=== PATIENT | male | born 1965 | race Caucasian/White ===

== ENCOUNTER 2017-03-15 11:50 | Emergency (ER) | payer BC ==
[~2017-03-15] VITALS: Ht 187.9 cm; Wt 86.2 kg
[~2017-03-15 11:50] MED LIST: CYCLOBENZAPRINE10 MG PO; LOMOTIL 0.025 M1 TAB PO; MOTRIN800 MG PO; NAPROSYN500 MG PO; PENICILLIN-VK500 M1 PO; VICODIN 5-3001 EACH PO
[2017-03-15] MEDS ORDERED: PREDNISONE10 MG PO (12:18)
[2017-03-15] MEDS ORDERED: CLARITIN10 MG PO (12:18)
[2017-03-15] MEDS ORDERED: FLONASE ALLERG9.9 ML NAS (12:18)
[2017-03-15] MEDS ORDERED: CHERATUSSIN AC118 M1 PO (12:18)
== END 2017-03-15 13:51 | disposition home or self-care (01) ==
LOC: ED 11:50
DX: J01.90 Acute sinusitis, unspecified (principal); R03.0 Elevated blood-pressure reading, without diagnosis of hypertension; F17.200 Nicotine dependence, unspecified, uncomplicated

== ENCOUNTER 2019-07-29 10:47 | Emergency (ER) | payer SELFPAY ==
[~2019-07-29] VITALS: Ht 187.9 cm; Wt 90.7 kg
[~2019-07-29 10:47] MED LIST changes: +CHERATUSSIN AC118 M1 PO; +CLARITIN10 MG PO; +FLONASE ALLERG9.9 ML NAS; +PREDNISONE10 MG PO
[2019-07-29] MEDS ORDERED: AUGMENTIN 875875 MG PO (12:03)
[2019-07-29] MEDS ORDERED: IBUPROFEN600 MG PO (12:03)
[2019-07-29] MEDS ORDERED: NORCO 5-325 TA1 EACH PO (12:03)
== END 2019-07-29 13:20 | disposition home or self-care (01) ==
LOC: ED 10:47
DX: L05.91 Pilonidal cyst without abscess (principal); Z79.899 Other long term (current) drug therapy; Z87.891 Personal history of nicotine dependence

== ENCOUNTER 2019-12-02 11:16 | Emergency (ER) | payer MEDICAID ==
[~2019-12-02] VITALS: Ht 187.9 cm; Wt 90.7 kg
[~2019-12-02 11:16] MED LIST changes: +AUGMENTIN 875875 MG PO; +IBUPROFEN600 MG PO; +NORCO 5-325 TA1 EACH PO
== END 2019-12-02 14:50 | disposition home or self-care (01) ==
LOC: ED 11:16
DX: N63.20 Unspecified lump in the left breast, unspecified quadrant (principal); F17.200 Nicotine dependence, unspecified, uncomplicated

== ENCOUNTER 2022-05-30 17:12 | Emergency (ER) | payer SELFPAY ==
[~2022-05-30] VITALS: Wt 88.5 kg
[2022-05-30 18:23] LABS: BASO % 0.4 % (0.0-1.0); EOS # 0.2 10*3/uL (0.0-0.4); EOS % 2.8 % (1.0-4.0); HEMATOCRIT 42.5 % (42.0-52.0); LYMPH # 1.8 10*3/uL (1.3-4.4); LYMPH % 26.8 % (27.0-41.0); MEAN CELL VOLUME 92.6 fl (80.0-94.0); MEAN CORPUSCULAR HGB 31.4 pg (27.0-31.0); MEAN CORPUSCULAR HGB CONC 33.9 g/dl (33.0-37.0); MEAN PLATELET VOLUME 9.3 fl (9.6-12.3); MONO # 0.4 10*3/uL (0.1-1.0); MONO % 5.4 % (3.0-9.0); NEUT # 4.3 10*3/uL (2.3-7.9); NEUT % 64.5 % (47.0-73.0); PLATELET COUNT AUTOMATED 216 10*3/uL (130-400); RED BLOOD COUNT 4.59 10*6/uL (4.50-5.90); RED CELL DISTRI WIDTH 13.6 % (0-14.5); WHITE BLOOD COUNT 6.7 10*3/uL (4.8-10.8)
[2022-05-30 18:39] LABS: ALKALINE PHOSPHATASE 56 U/L (46-116); BUN 18 mg/dl (9-23); CHLORIDE 107 mmol/L (98-107); POTASSIUM 4.5 mmol/L (3.4-5.1); SGPT/ALT 22 U/L (10-49); TOTAL PROTEIN 6.8 gm/dL (6.0-8.0)
[2022-05-30] MEDS ORDERED: HYDROCODONE-AC1 EAC1 PO ×2 (20:49→20:53)
== END 2022-05-30 21:04 | disposition home or self-care (01) ==
LOC: ED 17:12
PROVIDERS: Nurse Practitioner Family
DX: S82.892A Other fracture of left lower leg, initial encounter for closed fracture (principal); F17.200 Nicotine dependence, unspecified, uncomplicated; X58.XXXA Exposure to other specified factors, initial encounter; Y93.89 Activity, other specified; Y92.89 Other specified places as the place of occurrence of the external cause; Y99.8 Other external cause status

== ENCOUNTER 2024-06-15 14:11 | Emergency (ER) | payer SELFPAY ==
[~2024-06-15] VITALS: Ht 187.9 cm; Wt 86.2 kg
[~2024-06-15 14:11] MED LIST changes: +HYDROCODONE-AC1 EAC1 PO
[2024-06-15] MEDS ORDERED: LIDOCAINE HCL/EPINEPHRINE 50 ML VIAL ONE (15:06)
[2024-06-15] MEDS ORDERED: VIBRAMYCIN100 MG PO (15:25)
[2024-06-15] MEDS ORDERED: ceFAZolin sodium 1 GM VIAL IM ONE (15:30)
[2024-06-15] MEDS ORDERED: Motrin,Rufen800 MG PO (16:08)
== END 2024-06-15 16:00 | disposition home or self-care (01) ==
LOC: ED 14:11
DX: L02.11 Cutaneous abscess of neck (principal); L03.90 Cellulitis, unspecified; Z79.899 Other long term (current) drug therapy

== ENCOUNTER 2024-07-29 18:50 | Emergency (ER) | payer SELFPAY ==
[~2024-07-29] VITALS: Wt 87.5 kg
[~2024-07-29 18:50] MED LIST changes: +Motrin,Rufen800 MG PO; +VIBRAMYCIN100 MG PO
== END 2024-07-29 23:21 ==
LOC: ED 18:50
DX: S21.132A Puncture wound without foreign body of left front wall of thorax without penetration into thoracic cavity, initial encounter (principal); I46.8 Cardiac arrest due to other underlying condition; Z79.899 Other long term (current) drug therapy; W34.00XA Accidental discharge from unspecified firearms or gun, initial encounter; Y93.89 Activity, other specified; Y92.89 Other specified places as the place of occurrence of the external cause; Y99.8 Other external cause status